=== PATIENT | male | born 1995 | race Two or more races ===

== ENCOUNTER 2024-06-25 16:08 | Outpatient (CLI) | payer MEDICAID ==
[~2024-06-25 16:08] MED LIST: METH500T PO
== END 2024-06-25 23:59 | disposition home or self-care (01) ==
LOC: RAD 16:08
PROVIDERS: ATTEND Physician Assistant
DX: I51.7 Cardiomegaly (principal); F11.20 Opioid dependence, uncomplicated
CPT/HCPCS: 93005